=== PATIENT | male | born 1990 | race Caucasian/White ===

== ENCOUNTER 2024-06-19 17:50 | Emergency (ER) | payer MEDICAID, SELFPAY ==
[2024-06-19 19:17] VITALS: BMI 23.6
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
[2024-06-19 19:21] VITALS: BP 123/93; PULSE 94; RESP 18; TEMP 36.6; O2SAT 100
== END 2024-06-19 19:20 | disposition home or self-care (01) ==
LOC: SERX 19:32
PROVIDERS: Emergency Provider Emergency Medicine; PCP Family Medicine
DX: Z02.89 Encounter for other administrative examinations (principal)
CPT/HCPCS: 99281